=== PATIENT | male | born 1995 | race African-American/Black ===

== ENCOUNTER 2018-08-29 03:45 | Emergency (ER) | payer SELFPAY ==
[~2018-08-29] VITALS: Ht 180.3 cm; Wt 72.7 kg
[2018-08-29 04:58] LABS: BASOPHILS % (AUTO) 0.2 % (0.0-2.0); EOSINOPHILS % (AUTO) 0 % (1.0-6.0); HEMATOCRIT 44.8 % (41-53); HEMOGLOBIN 15.6 g/dL (13.5-17.5); LYMPHOCYTES # (AUTO) 0.5 K/uL (1.0-4.8); LYMPHOCYTES % (AUTO) 2.9 % (22.0-44.0); MEAN CORPUSCULAR HEMOGLOBIN 28.6 pg (26.0-34.0); MEAN CORPUSCULAR HGB CONC 34.8 G/dL (31.0-37.0); MEAN CORPUSCULAR VOLUME 82 fL (80-100); MONOCYTES # (AUTO) 0.8 K/uL (0.1-1.0); MONOCYTES % (AUTO) 5.1 % (2.0-9.0); NEUTROPHILS # (AUTO) 14.9 K/uL (1.8-7.7); PLATELET COUNT (AUTO) 434 K/uL (150-450); RED BLOOD CELL COUNT(AUTO) 5.44 MIL/uL (4.50-5.90); RED CELL DISTRIBUTION WIDTH 12.5 % (11.5-14.5)
[2018-08-29 05:01] LABS: NEUTROPHILS % (AUTO) 91.8 % (40.0-70.0)
[2018-08-29 05:17] LABS: ANION GAP 14 mmol/L (8-16); CALCIUM, TOTAL 9.7 mg/dL (8.8-10.5); CARBON DIOXIDE 23 mmol/L (22-29); CHLORIDE 97 mmol/L (98-107); CREATININE 1.27 mg/dL (0.60-1.30); GLOMERULAR FILTR. RATE CALC > 60 mL/min (>60); GLUCOSE,RANDOM 113 mg/dL (70-110); POTASSIUM 3.6 mmol/L (3.5-5.1); SODIUM SERUM 134 mmol/L (136-145); UREA NITROGEN, BLOOD 17 mg/dL (7-18)
[2018-08-29 05:18] LABS: SALICYLATE < 2.8 mg/dL (2.8-20.0)
[2018-08-29 05:24] LABS: ALANINE AMINOTRANSFERASE 7 U/L (12-78); ALBUMIN 3.7 g/dL (3.4-5.0); ALKALINE PHOSPHATASE 71 U/L (46-116); ASPARTATE AMINOTRANSFERASE 19 U/L (15-37); TOTAL PROTEIN, SERUM 8.1 g/dL (6.4-8.2)
[2018-08-29 05:31] LABS: ACETAMINOPHEN < 2 mcg/mL (10-30)
[2018-08-29 06:06] VITALS: BP 148/90
== END 2018-08-29 06:15 | disposition home or self-care (01) ==
LOC: EMS 03:47
DX: S10.91XA Abrasion of unspecified part of neck, initial encounter (principal); T43.695A Adverse effect of other psychostimulants, initial encounter; R41.82 Altered mental status, unspecified; Y92.89 Other specified places as the place of occurrence of the external cause; X58.XXXA Exposure to other specified factors, initial encounter; Y93.89 Activity, other specified; Y99.8 Other external cause status
CPT/HCPCS: 36415; 72100; 72170; 73610 ×2; 80053; 85025; 99285; G0480 ×2; G0481